=== PATIENT | male | born 1960 | race African-American/Black ===

== ENCOUNTER 2018-05-11 01:03 | Emergency (ER) | payer OTHER ==
[~2018-05-11] VITALS: Ht 177.8 cm; Wt 120.5 kg
[2018-05-11] MEDS ORDERED: TIOT185 IH (01:29)
[2018-05-11] MEDS ORDERED: MONT10TA21 PO (01:29)
[2018-05-11] MEDS ORDERED: ATOR40TA28 PO (01:29)
[2018-05-11] MEDS ORDERED: CARV25 PO (01:29)
[2018-05-11] MEDS ORDERED: PANT40TA25 PO (01:29)
[2018-05-11] MEDS ORDERED: LOSA50TA64 PO (01:29)
[2018-05-11] MEDS ORDERED: LEVAHFA IH (01:29)
[2018-05-11] MEDS ORDERED: KDUR10 PO (01:29)
[2018-05-11] MEDS ORDERED: FURO40 PO (01:29)
[2018-05-11] MEDS ORDERED: MOME13HF IH (01:29)
[2018-05-11] MEDS ORDERED: HYDR50CA10 PO (01:29)
[2018-05-11] MEDS ORDERED: MORP30 PO (01:29)
[2018-05-11] MEDS ORDERED: ASPI81 PO (01:29)
[2018-05-11] MEDS ORDERED: ALBUTEROL SULFATE 5 MG/ML 20 ML NEB SOLN [BULK] NEB ONE (01:45)
[2018-05-11] MEDS ORDERED: IPRATROPIUM BROMIDE 0.5 MG/2.5 ML NEB SOLUTION NEB ONE (01:45)
[2018-05-11] MEDS ORDERED: 0.9% SODIUM CHLORIDE 5 ML NEB SOLUTION NEB ONE (01:46)
[2018-05-11 03:00] LABS: ANION GAP 10 mmol/L (8-16); CALCIUM, TOTAL 9.7 mg/dL (8.8-10.5); CARBON DIOXIDE 29 mmol/L (22-29); CHLORIDE 104 mmol/L (98-107); CREATININE 0.87 mg/dL (0.60-1.30); GLOMERULAR FILTR. RATE CALC > 60 mL/min (>60); GLUCOSE,RANDOM 135 mg/dL (70-110); POTASSIUM 3.5 mmol/L (3.5-5.1); SODIUM SERUM 143 mmol/L (136-145); UREA NITROGEN, BLOOD 11 mg/dL (7-18)
[2018-05-11 03:06] LABS: ALANINE AMINOTRANSFERASE 22 U/L (12-78); ALBUMIN 3.6 g/dL (3.4-5.0); ALKALINE PHOSPHATASE 70 U/L (46-116); ASPARTATE AMINOTRANSFERASE 21 U/L (15-37); BILIRUBIN,TOTAL 0.5 mg/dL (0.1-1.0); LIPASE 43 U/L (73-393); TOTAL PROTEIN, SERUM 6.8 g/dL (6.4-8.2)
[2018-05-11 03:14] LABS: BASOPHILS % (AUTO) 0.3 % (0.0-2.0); EOSINOPHILS % (AUTO) 3.9 % (1.0-6.0); HEMOGLOBIN 13.1 g/dL (13.5-17.5); LYMPHOCYTES # (AUTO) 1.5 K/uL (1.0-4.8); LYMPHOCYTES % (AUTO) 20.8 % (22.0-44.0); MEAN CORPUSCULAR HEMOGLOBIN 27.4 pg (26.0-34.0); MEAN CORPUSCULAR HGB CONC 34.5 G/dL (31.0-37.0); MEAN CORPUSCULAR VOLUME 79 fL (80-100); MONOCYTES # (AUTO) 0.7 K/uL (0.1-1.0); MONOCYTES % (AUTO) 9.1 % (2.0-9.0); NEUTROPHILS # (AUTO) 4.8 K/uL (1.8-7.7); NEUTROPHILS % (AUTO) 65.9 % (40.0-70.0); PLATELET COUNT (AUTO) 116 K/uL (150-450); RED BLOOD CELL COUNT(AUTO) 4.79 MIL/uL (4.50-5.90)
[2018-05-11] MEDS ORDERED: PredniSONE 20 MG TABLET PO ONE (03:30)
[2018-05-11 03:36] LABS: B-TYPE NATRIURETIC PEPTIDE 18 pg/mL (0-100)
[2018-05-11 04:15] VITALS: BP 134/76
== END 2018-05-11 04:35 | disposition home or self-care (01) ==
LOC: EMS 01:03
DX: J44.9 Chronic obstructive pulmonary disease, unspecified (principal); I10 Essential (primary) hypertension; E78.00 Pure hypercholesterolemia, unspecified; K21.9 Gastro-esophageal reflux disease without esophagitis; Z79.899 Other long term (current) drug therapy
CPT/HCPCS: 36415; 71045; 80053; 83690; 83880; 84484; 85025; 94644; 99291; J7512